=== PATIENT | female | born 1970 | race Caucasian/White ===

== ENCOUNTER 2022-12-02 15:51 | Emergency (ER) | payer BC, SELFPAY ==
[2022-12-02 17:00] VITALS: BP 145/86; PULSE 77; RESP 20; TEMP 36.8; O2SAT 99; BMI 20.6
--- NOTE | 2022-12-02 17:03 | ED_ITS ---
Discharge Plan Disposition Patient Disposition: Home, Self-Care Condition: Good Prescriptions Prescriptions: New ofloxacin 0.3 % drops 10 drp otic (ear) BID 7 Days Qty: 10 0RF Referrals Follow up/Referrals: Provider,Referral, MD [Primary Care Provider] - See instructions Clinical Impressions Clinical Impression: Otitis externa Instructions Patient Instructions: DI for Otitis Externa Discharge ED Provider: Tamiko Fong [facility] [place] General Stated complaint: earache Time Seen by Provider: 12/02/22 17:04 History of Present Illness Provider Complaint: Left ear pain X 5-6 days. Left ear feels swollen. Pain radiates into jaw. Hurts to touch ear. No fever. OTC ear drops have not helped. Onset (ago): day(s) Consistency: constant Relieving factors: none Exacerbating factors: none Associated symptoms: denies other symptoms Treatments prior to arrival: other (OTC ear drops) Related Data Previous Rx's Medication Instructions Recorded ofloxacin 0.3 % ear drops 10 drp otic (ear) BID 7 days #10 mL 12/02/22 Allergies Allergy/AdvReac Type Severity Reaction Status Date / Time No Known Allergies Allergy Verified 12/02/22 17:09 [facility] Disclaimer: The information contained in this section may have been updated after the patient was seen, as this information can be updated by other users. Social History Smoking Status: Unknown if ever smoked alcohol intake: never current occupational status: employed Travel in the last 8 weeks: None ROS Obtained: Yes All systems reviewed & no additional complaints except as documented ENT Ears, Nose, Mouth, and Throat: Reports otalgia Physical Exam General General appearance: alert and in no apparent distress Head Head exam: atraumatic, normocephalic and normal inspection ENT ENT exam: Present normal exam, normal oropharynx, mucous membranes moist and TM's normal bilaterally Expanded ENT Exam External ear exam: Present pain with movement and external tenderness TM/Canal exam: Left TM: canal discharge and canal tenderness Chest Chest inspection: Present normal inspection and symmetric chest wall rise; Absent tenderness Respiratory Respiratory exam: Present normal lung sounds bilaterally; Absent respiratory distress Cardiovascular Cardiovascular exam: Present regular rate and normal rhythm; Absent JVD Extremities Exam Extremities exam: Present normal inspection, full ROM and normal capillary refill; Absent calf tenderness Neurological Exam Neurological exam: Present alert and oriented X3 Psychiatric Psychiatric exam: Present normal affect and normal mood Skin Skin exam: Present warm, dry, intact and normal color Lymphatic Lymphatic Findings: no adenopathy Medical Decision Making Brooks Inquiry Pt receiving controlled substance: No
[2022-12-02 17:25] VITALS: BP 145/86; PULSE 77; RESP 20; TEMP 36.8; O2SAT 99
== END 2022-12-02 17:25 | disposition home or self-care (01) ==
PROVIDERS: Emergency Provider Physician Assistant
DX: H60.92 Unspecified otitis externa, left ear (principal)
CPT/HCPCS: 99212; 99213; G0463

== ENCOUNTER 2023-01-13 15:59 | Emergency (ER) | payer BC, SELFPAY ==
[2023-01-13 16:10] VITALS: BP 137/78; PULSE 77; RESP 20; TEMP 36.9; O2SAT 100; BMI 21.6
[2023-01-13 16:36] LABS: UTC Strep Screen (Rapid) Negative (Negative)
--- NOTE | 2023-01-13 16:51 | EXP.UTC ---
Discharge Plan Disposition Patient Disposition: Home, Self-Care Condition: Good Prescriptions Prescriptions: New benzonatate [benzonatate] 100 mg capsule 100 mg PO TIDP PRN (Reason: Cough) Qty: 30 0RF methylprednisolone 4 mg Tablets,Dose Pack 4 mg PO DIRECTED Qty: 21 0RF amoxicillin-pot clavulanate 500-125 mg tablet 1 tab PO TID Qty: 20 0RF Referrals Follow up/Referrals: Provider,Referral, MD [Primary Care Provider] - See instructions Activity Restrictions/Add. Instructions Additional Instructions/Restrictions: Drink plenty of fluids. Take tylenol or ibuprofen for pain or fever. Take the medications as directed. Follow up with your regular doctor. GO TO THE ER FOR ANY WORSENING SYMPTOMS Clinical Impressions Clinical Impression: Sinusitis, Pharyngitis Instructions Patient Instructions: DI for Pharyngitis/Tonsillopharyngitis -- Adult, DI for Sinusitis, Benzonatate, Methylprednisolone, Azithromycin Discharge ED Provider: Jurgen Henderson [facility] General Stated complaint: sore throat,, sinus pressure Mode of Arrival: Ambulatory Source of Information: Patient Limitations: No Limitations Time Seen by Provider: 01/13/23 16:51 Description of Symptoms (Recalled from Triage Doc. by RN): sinus pressure, and sore throat HEENT Symptoms (Recalled from RN notes): Yes Resp Symptoms (Recalled from RN notes): No Skin Symptoms (Recalled from RN notes): No MS Symptoms (Recalled from RN notes): No Functional Status (Recalled from RN notes): n/a History of Present Illness Provider Complaint: She states that for the past 5 days she has had sinus congestion, drainage, and a cough. She has had a sore throat also. Related Data Previous Rx's Medication Instructions Recorded amoxicillin 500 mg-potassium 1 tab PO TID #20 tabs 01/13/23 clavulanate 125 mg tablet benzonatate 100 mg capsule 100 mg PO TIDP PRN Cough #30 caps 01/13/23 methylprednisolone 4 mg tablets in 4 mg PO DIRECTED #21 tabs 01/13/23 a dose pack Allergies Allergy/AdvReac Type Severity Reaction Status Date / Time No Known Allergies Allergy Verified 01/13/23 16:35 Worker's Comp Is this a Worker's Comp case?: No [facility] Disclaimer: The information contained in this section may have been updated after the patient was seen, as this information can be updated by other users. Social History Smoking Status: Unknown if ever smoked alcohol intake: never current occupational status: employed Travel in the last 8 weeks: None ROS Obtained: Yes All systems reviewed & no additional complaints except as documented Constitutional Constitutional: Reports poor appetite Eyes Eyes: Reports system reviewed and no additional complaints, except as documented ENT Ears, Nose, Mouth, and Throat: Reports as per HPI Cardiovascular Cardiovascular: Reports system reviewed and no additional complaints, except as documented and Denies chest pain Respiratory Respiratory: Denies shortness of breath, Reports chest congestion, Reports cough, Denies stridor and Denies wheezing Gastrointestinal Gastrointestingal: Reports system reviewed and no additional complaints, except as documented; Denies abdominal pain, diarrhea or vomiting Musculoskeletal Musculoskeletal: Reports system reviewed and no additional complaints, except as documented and Denies arthralgias Integumentary/Breasts Skin/Breast: Reports system reviewed and no additional complaints, except as documented and Denies rash Neurologic Neurologic: Denies paresthesias Allergic/Immunologic Allergic/Immunologic: Denies wheezing Physical Exam General General appearance: alert and in no apparent distress Eye Eye exam: Present normal appearance, PERRL and EOMI ENT ENT exam: Present mucous membranes moist and normal external ear exam Expanded ENT Exam External ear exam: Present normal external inspection TM/Canal exam: Bilateral TM: er
[2023-01-13 17:34] VITALS: BP 137/78; PULSE 77; RESP 20; TEMP 36.9; O2SAT 100
== END 2023-01-13 17:23 | disposition home or self-care (01) ==
PROVIDERS: Emergency Provider Nurse Practitioner Family
DX: J01.90 Acute sinusitis, unspecified (principal); J02.9 Acute pharyngitis, unspecified; R05.1 Acute cough
CPT/HCPCS: 87880; 99212; 99214; G0463

== ENCOUNTER 2023-05-02 12:47 | Emergency (ER) | payer BC, SELFPAY ==
[2023-05-02 12:48] VITALS: BP 152/77; PULSE 66; RESP 20; TEMP 36.8; O2SAT 98; BMI 20.6
--- NOTE | 2023-05-02 13:01 | EXP.UTC ---
Discharge Plan Disposition Patient Disposition: Home, Self-Care Condition: Good Prescriptions Prescriptions: New methylprednisolone 4 mg Tablets,Dose Pack 4 mg PO DIRECTED Qty: 21 0RF sumatriptan succinate [Imitrex] 50 mg tablet See Rx Instructions .ROUTE .COMPLEX PRN (Reason: migraine headache) Qty: 9 3RF Rx Instructions: take 1 tab at onset of headache; if no relief may repeat 1 tab after at least 2 hrs; max = 4 tabs/24 hr PRN; amoxicillin-pot clavulanate 875-125 mg Tablet 1 tab PO Q12H Qty: 20 0RF No Action benzonatate [benzonatate] 100 mg capsule 100 mg PO TIDP PRN (Reason: Cough) Qty: 30 0RF methylprednisolone 4 mg Tablets,Dose Pack 4 mg PO DIRECTED Qty: 21 0RF amoxicillin-pot clavulanate 500-125 mg tablet 1 tab PO TID Qty: 20 0RF Referrals Follow up/Referrals: Provider,Referral, MD [Primary Care Provider] - See instructions Activity Restrictions/Add. Instructions Additional Instructions/Restrictions: Drink plenty of fluids. Take tylenol or ibuprofen for pain or fever. Take the medications as directed. Follow up with your regular doctor. GO TO THE ER FOR ANY WORSENING SYMPTOMS Clinical Impressions Clinical Impression: Sinusitis, History of migraine Instructions Patient Instructions: Sinusitis, DI for Sinusitis Discharge ED Provider: Jurgen Henderson [facility] General Stated complaint: sinus FROST, pressure Mode of Arrival: Ambulatory Source of Information: Patient Limitations: No Limitations Time Seen by Provider: 05/02/23 12:57 Description of Symptoms (Recalled from Triage Doc. by RN): Patient reports a bad headache, sinus and facial pressure for 11 days. HEENT Symptoms (Recalled from RN notes): Yes Resp Symptoms (Recalled from RN notes): No Skin Symptoms (Recalled from RN notes): No MS Symptoms (Recalled from RN notes): No Functional Status (Recalled from RN notes): wnl History of Present Illness Provider Complaint: She states that she has had sinus congestion and a headache for the past 3 days. She has a history of migraine headache. Related Data Previous Rx's Medication Instructions Recorded amoxicillin 500 mg-potassium 1 tab PO TID #20 tabs 01/13/23 clavulanate 125 mg tablet benzonatate 100 mg capsule 100 mg PO TIDP PRN Cough #30 caps 03/24/23 methylprednisolone 4 mg tablets in 4 mg PO DIRECTED #21 tabs 01/13/23 a dose pack amoxicillin 875 mg-potassium 1 tab PO Q12H #20 tabs 05/02/23 clavulanate 125 mg tablet methylprednisolone 4 mg tablets in 4 mg PO DIRECTED #21 tabs 05/02/23 a dose pack sumatriptan succinate 50 mg tablet See Rx Instructions PO .COMPLEX 05/02/23 (Imitrex) PRN migraine headache #9 tabs Allergies Allergy/AdvReac Type Severity Reaction Status Date / Time No Known Allergies Allergy Verified 01/13/23 16:35 Worker's Comp Is this a Worker's Comp case?: No [facility] Disclaimer: The information contained in this section may have been updated after the patient was seen, as this information can be updated by other users. Social History Smoking Status: Unknown if ever smoked alcohol intake: never current occupational status: employed Travel in the last 8 weeks: None ROS Obtained: Yes All systems reviewed & no additional complaints except as documented Constitutional Constitutional: Reports headache(s) and Reports poor appetite Eyes Eyes: Reports system reviewed and no additional complaints, except as documented and Denies loss of vision ENT Ears, Nose, Mouth, and Throat: Reports as per HPI, Denies dizziness and Reports headache(s) Cardiovascular Cardiovascular: Reports system reviewed and no additional complaints, except as documented and Denies chest pain Respiratory Respiratory: Denies shortness of breath, Denies chest congestion, Reports cough, Denies stridor and Denies wheezing Gastrointestinal Gastrointestingal: Reports system reviewe
[2023-05-02 13:29] VITALS: BP 152/77; PULSE 66; RESP 20; TEMP 36.8; O2SAT 98
== END 2023-05-02 13:30 | disposition home or self-care (01) ==
PROVIDERS: Emergency Provider Nurse Practitioner Family
DX: J01.90 Acute sinusitis, unspecified (principal); Z86.69 Personal history of other diseases of the nervous system and sense organs
CPT/HCPCS: 99212; 99214; G0463

== ENCOUNTER 2023-09-02 18:24 | Emergency (ER) | payer BC, SELFPAY ==
[2023-09-02 18:45] VITALS: BP 145/84; PULSE 73; RESP 20; TEMP 36.8; O2SAT 98; BMI 21.4
[2023-09-02 18:57] VITALS: BP 145/84; PULSE 73; RESP 20; TEMP 36.8; O2SAT 98
--- NOTE | 2023-09-02 19:13 | EXP.UTC ---
Discharge Plan Disposition Patient Disposition: Home, Self-Care Condition: Good Prescriptions Prescriptions: New methylprednisolone [Medrol (Neal)] 4 mg tablets,dose pack See Rx Instructions .Route .COMPLEX 6 Days Qty: 21 0RF Rx Instructions: taper pack; amoxicillin-pot clavulanate 875-125 mg Tablet 1 tab PO Q12H Qty: 20 0RF Referrals Follow up/Referrals: Provider,Referral, MD [Primary Care Provider] - See instructions Activity Restrictions/Add. Instructions Additional Instructions/Restrictions: *Monitor Temp, Over the counter Motrin or Tylenol as directed/as needed Tylenol every 4 hours and Motrin every 6 hours (as long as your family doctor has told you that you can take it) for fever or pain. and straight to ER if unable to lower temp less than 101.0 after medication given *Warm salt water gargles may help to soothe the throat *Throat Lozenges? *Warm fluids like tea with honey may help to soothe the throat? *Sleep elevated *Humidifier/Vaporizer Take medication as prescribed Follow up IMMEDIATELY for new or worsening symptoms or no Noticeable improvement over the next 48-72 hours. 911 for difficulty breathing or swallowing Clinical Impressions Clinical Impression: Sinusitis Qualifiers: Sinusitis location: unspecified location Chronicity: unspecified Qualified Code(s): J32.9 - Chronic sinusitis, unspecified Instructions Patient Instructions: DI for Sinusitis, Sinusitis Discharge ED Provider: Hannah Anand [facility] General Stated complaint: FROST,ears full,head pressure Mode of Arrival: Ambulatory Source of Information: Patient Limitations: No Limitations Time Seen by Provider: 09/02/23 19:14 Description of Symptoms (Recalled from Triage Doc. by RN): PATIENT C/O SINUS PRESSURE, EAR PAIN, FACE TENDERNESS, AND HEADACHE X 4 DAYS HEENT Symptoms (Recalled from RN notes): Yes Resp Symptoms (Recalled from RN notes): No Skin Symptoms (Recalled from RN notes): No MS Symptoms (Recalled from RN notes): No Functional Status (Recalled from RN notes): WNL History of Present Illness Provider Complaint: Patient states that for the last 4-5 days she has been having sinus pain and pressure, pressure behind her eyes, pain and pressure in her ears and feels like she is having drainage in the back of his throat and feels like her face is tender when she touches it States that today it was worse so she came in after work Related Data Previous Rx's Medication Instructions Recorded amoxicillin 875 mg-potassium 1 tab PO Q12H #20 tabs 09/02/23 clavulanate 125 mg tablet methylprednisolone 4 mg tablets in See Rx Instructions .Route 09/02/23 a dose pack (Medrol (Neal)) .COMPLEX 6 days #21 tabs Allergies Allergy/AdvReac Type Severity Reaction Status Date / Time No Known Allergies Allergy Verified 01/13/23 16:35 Worker's Comp Is this a Worker's Comp case?: No [facility] Disclaimer: The information contained in this section may have been updated after the patient was seen, as this information can be updated by other users. Medical History (Updated 09/02/23 @ 19:23 by Hannah Anand APRN) Anxiety Migraine Social History Smoking Status: Unknown if ever smoked alcohol intake: never current occupational status: employed Travel in the last 8 weeks: None ROS Obtained: Yes All systems reviewed & no additional complaints except as documented and Yes Systems reviewed as appropriate & no additional complaints except as documented Constitutional Constitutional: Reports system reviewed and no additional complaints, except as documented, Reports as per HPI and Reports headache(s) ENT Ears, Nose, Mouth, and Throat: Reports system reviewed and no additional complaints, except as documented, Reports otalgia, Reports headache(s), Reports sinus pain, Reports sinus pressure and Reports sore throat Cardiovascular Cardio
== END 2023-09-02 19:27 | disposition home or self-care (01) ==
PROVIDERS: Emergency Provider Nurse Practitioner
DX: J01.90 Acute sinusitis, unspecified (principal); R51.9 Headache, unspecified; H92.03 Otalgia, bilateral
CPT/HCPCS: 99212; 99214; G0463

== ENCOUNTER 2024-05-05 16:56 | Emergency (ER) | payer BC, SELFPAY ==
[2024-05-05 17:15] VITALS: BP 131/70; PULSE 74; RESP 18; TEMP 36.8; O2SAT 97; BMI 21.4
--- NOTE | 2024-05-05 17:17 | EXP.UTC ---
Discharge Plan Disposition Patient Disposition: Home, Self-Care Condition: Good Prescriptions Prescriptions: New benzonatate 100 mg capsule 100 mg PO TIDP PRN (Reason: Cough) Qty: 30 0RF methylprednisolone 4 mg Tablets,Dose Pack 4 mg PO DIRECTED 6 Days Qty: 21 0RF Rx Instructions: Take 1 pack as directed for 6 days amoxicillin-pot clavulanate 875-125 mg Tablet 1 tab PO Q12H Qty: 20 0RF Referrals Follow up/Referrals: Provider,Referral, MD [Primary Care Provider] - See instructions Activity Restrictions/Add. Instructions Additional Instructions/Restrictions: Drink plenty of fluids. Take tylenol or ibuprofen for pain or fever. Take the medications as directed. Follow up with your regular doctor. GO TO THE ER FOR ANY WORSENING SYMPTOMS Clinical Impressions Clinical Impression: Sinusitis Qualifiers: Sinusitis location: unspecified location Chronicity: unspecified Qualified Code(s): J32.9 - Chronic sinusitis, unspecified Instructions Patient Instructions: Sinusitis, DI for Sinusitis Discharge ED Provider: Jurgen Henderson [facility] General Stated complaint: Head congestion,FROST Time Seen by Provider: 05/05/24 17:17 History of Present Illness Provider Complaint: She states that for the past 3 days she has had worsening sinus congestion and ear pain. Related Data Previous Rx's Medication Instructions Recorded amoxicillin 875 mg-potassium 1 tab PO Q12H #20 tabs 05/05/24 clavulanate 125 mg tablet benzonatate 100 mg capsule 100 mg PO TIDP PRN Cough #30 caps 05/05/24 methylprednisolone 4 mg tablets in 4 mg PO DIRECTED 6 days #21 tabs 05/05/24 a dose pack Allergies Allergy/AdvReac Type Severity Reaction Status Date / Time No Known Allergies Allergy Verified 01/13/23 16:35 [facility] Disclaimer: The information contained in this section may have been updated after the patient was seen, as this information can be updated by other users. Medical History (Updated 05/05/24 @ 17:24 by Jurgen Henderson APRN) Anxiety Migraine Social History Smoking Status: Unknown if ever smoked alcohol intake: never current occupational status: employed Travel in the last 8 weeks: None ROS Obtained: Yes All systems reviewed & no additional complaints except as documented Constitutional Constitutional: Reports poor appetite Eyes Eyes: Reports system reviewed and no additional complaints, except as documented ENT Ears, Nose, Mouth, and Throat: Reports as per HPI Cardiovascular Cardiovascular: Reports system reviewed and no additional complaints, except as documented and Denies chest pain Respiratory Respiratory: Denies shortness of breath, Denies chest congestion, Reports cough, Denies stridor and Denies wheezing Gastrointestinal Gastrointestingal: Reports system reviewed and no additional complaints, except as documented; Denies abdominal pain, diarrhea or vomiting Musculoskeletal Musculoskeletal: Reports system reviewed and no additional complaints, except as documented and Denies arthralgias Integumentary/Breasts Skin/Breast: Reports system reviewed and no additional complaints, except as documented and Denies rash Neurologic Neurologic: Denies paresthesias Allergic/Immunologic Allergic/Immunologic: Denies wheezing Physical Exam General General appearance: alert and in no apparent distress Eye Eye exam: Present normal appearance, PERRL and EOMI ENT ENT exam: Present mucous membranes moist and normal external ear exam Expanded ENT Exam External ear exam: Present normal external inspection TM/Canal exam: Bilateral TM: erythema and bulging Nose exam: Absent sinus tenderness Nasal speculum exam: Bilateral: normal Mouth exam: Present normal external inspection; Absent drooling Teeth exam: Present normal inspection Throat exam: Present tonsillar erythema and tonsillomegaly Neck Neck exam: Present normal inspection, full ROM and trachea midline; Absent tenderness, lymphadenopathy or thyromegaly Chest Chest inspection: Present normal inspection and symmetric chest wall rise; Absent tenderness or rash Respiratory Respiratory exam: Present normal lung sounds bilaterally; Absent respiratory distress, wheezes, stridor or accessory muscle use Cardiovascular Cardiovascular exam: Present regular rate, normal rhythm and normal heart sounds Abdominal Exam Abdominal exam: Present soft; Absent distention, tenderness, guarding, rebound or rigidity Extremities Exam Extremities exam: Present normal inspection, full ROM and normal capillary refill; Absent tenderness or calf tenderness Back Exam Back exam: Present normal inspection and full ROM; Absent tenderness Neurological Exam Neurological exam: Present alert and oriented X3 Psychiatric Psychiatric exam: Present normal affect and normal mood Skin Skin exam: Present warm, dry, intact and normal color Lymphatic Lymphatic Findings: no adenopathy Medical Decision Making Medical Records Medical records reviewed: No I reviewed the patient's medical records. Brooks Inquiry Pt receiving controlled substance: No
[2024-05-05 17:27] VITALS: BP 131/70; PULSE 74; RESP 18; TEMP 36.8; O2SAT 98
== END 2024-05-05 17:30 | disposition home or self-care (01) ==
PROVIDERS: Emergency Provider Nurse Practitioner Family
DX: J01.90 Acute sinusitis, unspecified (principal); R51.9 Headache, unspecified; H92.03 Otalgia, bilateral
CPT/HCPCS: 99212; 99214; G0463

== ENCOUNTER 2024-06-30 16:44 | Emergency (ER) | payer BC, SELFPAY ==
--- NOTE | 2024-06-30 17:05 | ED_ITS ---
Discharge Plan Disposition Patient Disposition: Home, Self-Care Condition: Good Prescriptions Prescriptions: New triamcinolone acetonide 0.1 % cream 1 applic topical BID PRN (Reason: itching) Qty: 30 0RF diphenhydramine HCl 25 mg capsule 25 mg PO Q6HP PRN (Reason: Itching) Qty: 30 0RF methylprednisolone 4 mg Tablets,Dose Pack 4 mg PO DIRECTED 6 Days Qty: 21 0RF Rx Instructions: Take 1 pack as directed for 6 days No Action benzonatate 100 mg capsule 100 mg PO TIDP PRN (Reason: Cough) Qty: 30 0RF methylprednisolone 4 mg Tablets,Dose Pack 4 mg PO DIRECTED 6 Days Qty: 21 0RF Rx Instructions: Take 1 pack as directed for 6 days amoxicillin-pot clavulanate 875-125 mg Tablet 1 tab PO Q12H Qty: 20 0RF Referrals Follow up/Referrals: Provider,Referral, MD [Primary Care Provider] - See instructions Activity Restrictions/Add. Instructions Additional Instructions/Restrictions: Try to identify and avoid contact with the offending substance. Don't start the oral steroids (medrol dose pack) until tomorrow. The diphenhydramine (benedryl) will make you drowsy, so don't drive or operate heavy machinery after taking it. Don't put the topical steroids (triamcinolone) on your face or your groin. Follow up with your regular doctor. GO TO THE ER FOR ANY WORSENING SYMPTOMS OR CONCERNS Clinical Impressions Clinical Impression: Contact dermatitis Instructions Patient Instructions: DI for Contact Dermatitis, Diphenhydramine Topical, Triamcinolone Topical, Dexamethasone Injection Print Language Print Language: Fijian Discharge ED Provider: Jurgen Henderson [facility] General Stated complaint: rash Time Seen by Provider: 06/30/24 17:05 History of Present Illness Provider Complaint: She states that for the past 2 days she has had an itchy rash on her face, right arm and abdomen. She has been working around [place] in her back yard. Related Data Previous Rx's ?Medication ?Instructions ?Recorded amoxicillin 875 mg-potassium 1 tab PO Q12H #20 tabs 05/05/24 clavulanate 125 mg tablet benzonatate 100 mg capsule 100 mg PO TIDP PRN Cough #30 caps 05/05/24 methylprednisolone 4 mg tablets in 4 mg PO DIRECTED 6 days #21 tabs 05/05/24 a dose pack diphenhydramine HCl 25 mg capsule 25 mg PO Q6HP PRN Itching #30 caps 06/30/24 methylprednisolone 4 mg tablets in 4 mg PO DIRECTED 6 days #21 tabs 06/30/24 a dose pack triamcinolone acetonide 0.1 % 1 applic topical BID PRN itching 06/30/24 topical cream #30 grams Allergies Allergy/AdvReac Type Severity Reaction Status Date / Time No Known Allergies Allergy Verified 01/13/23 16:35 [facility] Disclaimer: The information contained in this section may have been updated after the patient was seen, as this information can be updated by other users. Medical History (Updated 06/30/24 @ 17:18 by Jurgen Henderson APRN) Anxiety Migraine Social History Smoking Status: Unknown if ever smoked alcohol intake: never current occupational status: employed Travel in the last 8 weeks: None ROS Obtained: Yes All systems reviewed & no additional complaints except as documented Constitutional Constitutional: Denies chills and Denies fever(s) Eyes Eyes: Denies eye discharge ENT Ears, Nose, Mouth, and Throat: Denies dizziness, Denies otalgia and Denies sore throat Cardiovascular Cardiovascular: Denies chest pain Respiratory Respiratory: Denies shortness of breath, Denies chest congestion, Denies cough, Denies stridor and Denies wheezing Gastrointestinal Gastrointestingal: Denies nausea or vomiting Musculoskeletal Musculoskeletal: Reports system reviewed and no additional complaints, except as documented and Denies arthralgias Integumentary/Breasts Skin/Breast: Reports as per HPI and Reports rash Neurologic Neurologic: Denies dizziness and Denies paresthesias Allergic/Immunologic Allergic/Immunologic: Denies wheezing Physical Exam General General appearance: alert and in no apparent distress Head Head exam: atraumatic, normocephalic and normal inspection Eye Eye exam: Present normal appearance, PERRL and EOMI ENT ENT exam: Present normal exam, normal oropharynx, mucous membranes moist, TM's normal bilaterally and normal external ear exam Neck Neck exam: Present normal inspection, full ROM and trachea midline; Absent men ingismus or lymphadenopathy Chest Chest inspection: Present normal inspection and symmetric chest wall rise; Absent tenderness Respiratory Respiratory exam: Present normal lung sounds bilaterally; Absent respiratory distress Cardiovascular Cardiovascular exam: Present regular rate and normal rhythm; Absent JVD Abdominal Exam Abdominal exam: Present soft and normal bowel sounds; Absent distention, tend erness or guarding Extremities Exam Extremities exam: Present normal inspection, full ROM and normal capillary refill; Absent calf tenderness Back Exam Back exam: Present normal inspection; Absent tenderness Neurological Exam Neurological exam: Present alert and oriented X3 Psychiatric Psychiatric exam: Present normal affect and normal mood Skin Skin exam: Present rash Lymphatic Lymphatic Findings: no adenopathy Medical Decision Making Medical Records Medical records reviewed: No I reviewed the patient's medical records. [place] Inquiry Pt receiving controlled substance: No
[2024-06-30 17:06] VITALS: BP 143/69; PULSE 80; RESP 16; TEMP 37.1; O2SAT 99; BMI 20.9
[2024-06-30] MEDS: DEXAMETHASONE 4MG/ML 1ML VIAL 8 MG IM (17:19)
[2024-06-30 17:35] VITALS: BP 143/69; PULSE 80; RESP 16; TEMP 37.1; O2SAT 99
== END 2024-06-30 17:36 | disposition home or self-care (01) ==
PROVIDERS: Emergency Provider Nurse Practitioner Family
DX: L23.7 Allergic contact dermatitis due to plants, except food (principal); W60.XXXA Contact with nonvenomous plant thorns and spines and sharp leaves, initial encounter
CPT/HCPCS: 96372; 99212; 99214; G0463; J1100

== ENCOUNTER 2024-09-10 15:16 | Emergency (ER) | payer BC, SELFPAY ==
--- OUTSIDE RECORDS SUMMARY | 2024-09-10 15:23 | XMS_ITS | Data Portability ---
Author Organization [place] - [facility] - [facility], [facility] IP Address [address] [place] [address] Assessment No assessment recorded. Plan of Treatment Reminders Order Date Submit Date Provider Last Modified By Organization Details Last Modified Time Details Appointments Women Visit 45 2024 03:00P YAJAIRA FLORES Not available Not available Not available Lab cytology report, thin prep, smear or scraping, cervical or vaginal 2023 024 HEBRON [facility], [address] [place] [address], [address], 06/05/2024 09:14:09 Referral None recorded. Procedures None recorded. Surgeries None recorded. Imaging None recorded. Medication Orders None recorded. Patient TargetsNo targets recorded. Patient InstructionsNo instructions recorded. Reason for Referral None Reported. Results Created Date Observation Date Name Description Value Unit Range Abnormal Flag Note LastModifiedBy Organization Detail LastModifiedTime 12/17/2019 rapid flu (A+B) Procedural Control Valid: Yes Not Available [facility] [address], [place], [address], 12/17/2019 13:19:53 12/17/2019 rapid flu (A+B) Influenza A Result: negati ve Not Available [facility] [employer] [facility] [address], [place], [address], 12/17/2019 13:19:53 12/17/2019 rapid flu (A+B) Influenza B Result: negati ve Not Available [facility] [employer] [facility] [employer] [address], [place], [address], 12/17/2019 13:19:53 12/14/2019 rapid flu (A+B) Procedural Control Valid: Yes Not Available [facility] [address], [place], [address], 12/14/2019 11:16:10 12/14/2019 rapid flu (A+B) Influenza A Result: negati ve Not Available [facility] [address], [place], [address], 12/14/2019 11:16:10 12/14/2019 rapid flu (A+B) Influenza B Result: negati ve Not Available [facility] [address], [place], [address], 12/14/2019 11:16:10 07/28/20 22 07/28/2022 rapid SARS CoV 2 Ag, QL IA, respi rator y speci men Procedure Control Valid Yes Not Available Not Available 03/2022 14:07:35 07/28/20 22 07/28/2022 rapid SARS CoV 2 Ag, QL IA, respi rator y speci men SARS negati ve Not Available Not Available 14:07:35 07/28/2007/28/2022 rapid SARS CoV 2 Ag, QL IA, respi rator y speci men Confirmation Specimen sent to lab Yes Not Available Not Available 07/28/2022 14:07:35 07/28/20 22 07/28/2022 rapid flu (A+B) Procedural Control Valid: Yes Not Available [facility] [address], [place], [address], 07/28/2022 14:07:33 07/28/20 22 07/28/2022 rapid flu (A+B) Influenza A Result: negati ve Not Available [facility] [address], [place], [address], 07/28/2022 14:07:33 07/28/20 22 07/28/2022 rapid flu (A+B) Influenza B Result: negati ve Not Available [facility] [address], [place], [address], 07/28/2022 14:07:33 07/28/20 22 07/28/2022 rapid strep group A, throa t Procedural Control Valid: Yes Not Available [facility] [address], [place], [address], 07/28/2022 14:07:32 07/28/20 22 07/28/2022 rapid strep group A, throa t Strep A Result: negati ve Not Available [facility] [address], [place], [address], 07/28/2022 14:07:32 07/28/20 22 07/28/2022 rapid strep group A, throa t Confirmation Specimen Yes Not Available [facility] [address], [place], [address], 07/28/2022 14:07:32 07/28/20 22 07/31/2022 BETA STREP GP A CULTU RE beta strep gp A culture negati ve Refer ence Range : Negat kurtis Not Available [facility] ([facility]) [address] [place], [address], 07/31/2022 09:08:19 07/28/2007/28/2022 PLEAS E NOTE please note commen t The date and/o r time of colle ction was not indic ated on the requi sitio n as requi red by state and nia al law. The date of recei pt of the speci men was used as the colle ction date if not suppl ied. Not Available [facility] ([facility]) [address] [facility], [place], [address], 07/29/2022 14:10:50 07/28/20 22 07/29/2022 SARS- COV-2 , JOSSELYN sars-cov-2, JOSSELYN not detect ed not detect ed This nucle ic acid ampli ficat ion test was devel oped and its perfo rmanc e teresa cteri stics deter mined by [facility] at[facility] es. Nucle ic acid ampli ficat ion tests inclu de RT-PC R and TMA. This test has not been FDA clear ed or appro marylou. This test has been autho rized by FDA under an Emerg ency Use Autho rizat ion (EUA) . This test is only autho rized for the durat ion of time the decla ratio n that circu mstan tom exist justi fying the autho rizat ion of the emerg ency use of in vitro diagn ostic tests for detec tion of SARS- CoV-2 virus and/o r diagn osis of COVID -19 infec tion under secti on 564(b )(1) of the Act, 21 U.S.C . 360bb b-3(b ) (1), unles s the autho rizat ion is termi nated or revok ed soone r. When diagn ostic testi ng is negat kurtis, the possi bilit y of a false negat kurtis resul t shoul d be consi dered in the alyson xt of a patie nt's recen t expos ures and the prese nce of clini janae signs and sympt oms consi stent with COVID -19. An indiv idual witho ut sympt oms of COVID -19 and who is not fauzia ing SARS- CoV-2 virus would expec t to have a negat kurtis (not detec yan) resul t in this assay . Not Available [facility] ([facility]) [address] [facility], [place], [address], 07/29/2022 14:10:49 07/28/20 22 07/29/2022 SARS- COV-2 , JOSSELYN sars-cov-2, JOSSELYN 2 day tat perfor med Not Available [facility] ([facility]) [address] [facility], [place], [address], 07/29/2022 14:10:49 05/30/20 24 06/01/2024 IGP, APTIM A HPV, RFX 16/18 ,45 HPV aptima NEGATI VE negati ve This nucle ic acid ampli ficat ion test detec ts fourt een high- risk HPV types (16,1 8,31, 33,35 ,39,4 5,51, 52,56 ,58,5 9,66, 68) witho ut diffe renti ation . Not Available [facility] ([facility]) [address] [place], [address], 06/05/2024 09:14:09 05/30/20 24 06/05/2024 IGP, APTIM A HPV, RFX 16/18 ,45 interpretati on NILM,A SMR NEGAT KURTIS FOR INTRA EPITH ELIAL LESIO N OR MALIG RENATO . CELLU FLORES BANKS ES ASSOC IATED WITH ATROP HY ARE PRESE NT. Not Available [facility] ([facility]) [address] [place], [address], 06/05/2024 09:14:09 05/30/20 24 06/05/2024 IGP, APTIM A HPV, RFX 16/18 ,45 category: NIL Negat kurtis for Intra epith elial Lesio n Not Available [facility] ([facility]) [address] [facility], [place], [address], 06/05/2024 09:14:09 05/30/20 24 06/05/2024 IGP, APTIM A HPV, RFX 16/18 ,45 adequacy: PAER Satis facto ry for evalu ation . Endoc ervic al compo nent may not be disti nguis hed in cases of atrop hy. Not Available [facility] ([facility]) [address] [place], [address], 06/05/2024 09:14:09 05/30/20 24 06/05/2024 IGP, APTIM A HPV, RFX 16/18 ,45 clinician provided ICD10: BREANNEN T Z01.4 19 Not Available [facility] ([facility]) [address] [facility], [place], [address], 06/05/2024 09:14:09 05/30/20 24 06/05/2024 IGP, APTIM A HPV, RFX 16/18 ,45 performed by: BEENA Camacho , Cytoperri perera (ASCP ) Not Available [facility] ([facility]) [address] [facility], [place], [address], 06/05/2024 09:14:09 05/30/20 24 06/05/2024 IGP, APTIM A HPV, RFX 16/18 ,45 note: BEENA Perera The Pap smear is a scree brianna test desyannick belia to aid in the detec tion of dago ligna nt and malig nant condi tions of the uteri ne cervi x. It is not a diagn ostic proce dure and shoul d not be used as the sole means of detec ting cervi janae cance r. Both false -posi tive and false -nega tive repor ts do occur . Not Available [facility] ([facility]) [address] [facility], [place], [address], 06/05/2024 09:14:09 05/30/20 24 06/05/2024 IGP, APTIM A HPV, RFX 16/18 ,45 test methodology: BEENA Perera This liqui d based ThinP rep(R ) pap test was scree belia with the use of an image guide benito chavez. Not Available [facility] ([facility]) [address] [facility], [place], [address], 06/05/2024 09:14:09 05/30/20 24 06/05/2024 IGP, APTIM A HPV, RFX 16/18 ,45 HPV genotype reflex BEENA Perera Crite luis miguel not met, HPV Genot ype not perfo rmed. Not Available [facility] ([facility]) [address] [facility], [place], [address], 06/05/2024 09:14:09 Result Notes None recorded. 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 Procedures Surgical History Date Name Laterality Status Provider Name and Address Organization Details Recorded Time 05/30/2024 C-SSRA completed Mayela Javier [place] - [facility] 05/30/2024 13:13:00 Imaging Results None recorded. Procedure Notes None recorded. Medical Equipment None Reported. Allergies Allergen ID Allergen Name Allergen Category Reaction Reaction Severity Criticality Documentation Date Start Date Code Code System Note Provider Name and Address Organization Details Recorded Time 227 Non-stero idal anti-infl ammatory agent (product) medicatio n Not available Not available Not available 11/25/2023 00167 005 SNOMED ibupr ophen Not Available [facility] 16:10:22 Medications Name Sig Start Date Stop Date Status Note LastModified by Organization Details LastModified Time promethazin e-DM 6.25 mg-15 mg/5 mL oral syrup Take 5 mL every 6 hours by oral route. 12/14 completed Not Available Not Available Not Available azithromyci n 250 mg tablet 05/30 completed Not Available Not Available Not Available sumatriptan 100 mg tablet TAKE 1 TABLET BY MOUTH DAILY AT ONSET OF MIGRAINE FOR 9 DAYS NEEDED. MAY REPEAT 1 TIME AFTER 2 HOURS NEEDED active Not Available Not Available No t Available Claritin 10 mg tablet Take 1 tablet every day by oral route. 11/14 completed Not Available Not Available Not Available Aplisol 5 tub. unit/0.1 mL intradermal injection solution Inject 0.1 mL by intraderm al route. 05/30 completed Not Available Not Available Not Available prednisone 20 mg tablet Take 1 tablet twice a day by oral route for 5 days. 11/24 completed Not Available Not Available Not Available Diflucan 150 mg tablet Take 1 tablet every 72 hours by oral route as directed. 07/28 completed Not Available Not Available Not Available sumatriptan 50 mg tablet active Not Available Not Available Not Available amlodipine 5 mg tablet Take 1 tablet every day by oral route. 12/14 completed Not Available Not Available Not Available ofloxacin 0.3 % ear drops PLACE 10 DROPS INTO AFFECTED EAR TWICE DAILY FOR 7 DAYS 05/30 completed Not Available Not Available Not Available amoxicillin 875 mg tablet TAKE 1 TABLET BY MOUTH TWICE DAILY 05/30 completed Not Available Not Available Not Available citalopram 20 mg tablet Take 1 tablet every day by oral route. 12/14 completed Not Available Not Available Not Available benzonatate 100 mg capsule Take 2 capsules 3 times a day by oral route. 05/30 completed Not Available Not Available Not Available oseltamivir 75 mg capsule Take 1 capsule twice a day by oral route as directed for 5 days. 12/19 completed Not Available Not Available Not Available hydroxyzine HCl 25 mg tablet TAKE 1 TABLET BY MOUTH THREE TIMES DAILY NEEDED 05/30 completed Not Available Not Available Not Available dexamethaso ne sodium phosphate 4 mg/mL injection solution Inject 1 mL twice a day by intramusc ular route for 1 day. 12/19 completed Not Available Not Available Not Available lorazepam 1 mg tablet TAKE 1/2 TO 1 TABLET BY MOUTH THREE TIMES DAILY NEEDED 05/30 completed Not Available Not Available Not Available ibuprofen 600 mg tablet TAKE 1 TABLET BY MOUTH THREE TIMES DAILY FOR 7 DAYS FOR PAIN 05/30 completed Not Available Not Available Not Available scopolamine 1 mg over 3 days transdermal patch 05/30 completed Not Available Not Available Not Available methylpredn isolone 4 mg tablets in a dose pack FOLLOW PACKAGE DIRECTION S 05/30 completed Not Available Not Available Not Available cefdinir 300 mg capsule TAKE 1 CAPSULE BY MOUTH TWICE DAILY FOR 10 DAYS 05/30 completed Not Available Not Available Not Available Sudafed 12 Hour 120 mg tablet,exte nded release Take 1 tablet every 12 hours by oral route. 12/14 completed Not Available Not Available Not Available amoxicillin 875 mg-potassiu m clavulanate 125 mg tablet TAKE 1 TABLET TWICE DAILY BY MOUTH FOR 10 DAYS 05/30 completed Not Available Not Available Not Available amoxicillin 500 mg-potassiu m clavulanate 125 mg tablet TAKE 1 TABLET BY MOUTH THREE TIMES DAILY TILL ALL TAKEN 05/30 completed Not Available Not Available Not Available Afrin (oxymetazol ine) 0.05 % nasal spray [facility] 2 sprays twice a day by intranasa l route. 12/14 completed Not Available Not Available Not Available Mucinex 600 mg tablet, extended release Take 1 tablet every 12 hours by oral route. 12/14 completed Not Available Not Available Not Available escitalopra m 10 mg tablet TAKE 1 TABLET BY MOUTH EVERY DAY 05/30 completed Not Available Not Available Not Available escitalopra m 5 mg tablet TAKE 1 TABLET BY MOUTH EVERY DAY 05/30 completed Not Available Not Available Not Available omeprazole PRN 2019 active Not Available Not Available Not Avai lable sodium,pota ssium,mag sulfates 17.5 gram-3.13 gram-1.6 gram oral soln MIX AND DRINK DIRECTED 05/30 completed Not Available Not Available Not Available Flonase Allergy Relief 50 mcg/actuati on nasal spray,suspe nsion [facility] 2 sprays every day by intranasa l route. 12/14 completed Not Available Not Available Not Available Vitals Date Recorded Body weight Heart rate Oxygen saturation Oxygen saturation in Arterial blood by Pulse oximetry Body temperature Systolic blood pressure Diastolic blood pressure Provider Name and Address Organization Details Last Updated DateTime 4 03204.6 g 78 /min 98 % 98 % 98.7 [degF] 124 mm[Hg] 75 mm[Hg] Mayela Herrera [place] - [facility] 4 13:14:16 Date Recorded Heart rate Oxygen saturation Oxygen saturation in Arterial blood by Pulse oximetry Body temperature Body weight Systolic blood pressure Diastolic blood pressure Provider Name and Address Organization Details Last Updated DateTime 0 83 /min 98 % 98 % 98.8 [degF] 98621.4 5 g 139 mm[Hg] 70 mm[Hg] Not Available [facility] 4 16:07:51 Social History Question Answer Notes LastModified by Organizat ion Details LastModified Time Tobacco Smoking Status Never Smoker Not Available [facility] 11/25/2023 16:05:10 Do You Have An Advance Directive? No [id number].[id number] Information not available 11/25/2023 What Is Your Level Of Alcohol Consumption? Occasional Rare [email or web address] Information not available 05/30/2024 Are You Blind Or Do You Have Difficulty Seeing? No MIGRATION.23013 [id number] Information not available 11/25/2023 What Is Your Level Of Caffeine Consumption? Moderate Diet Sodas A Couple Per Day Information not available 05/30/2024 How Much Tobacco Do You Chew? 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 No MIGRATION.17006 [id number] Information not available 11/25/2023 What Type Of Diet Are You Following? REGULAR 05/30/24 Diet Review: healthy. Calcium Intake Via Green Veggies, Much Milk. Fruits/Veg About 3-4 Servings Per Day. Information not available 05/30/2024 Which Illicit Or Recreational Drugs Have You Used? None MIGRATION.[id number] Information not available 11/25/2023 Have You Had Other Close Contact With An Ebola Virus Disease Patient In Health Care Facilities Or Community Settings? No MIGRATION.05515 11409 Information not available 11/25/2023 Have You Had Contact With Blood, Bodily Fluids, Or Human Remains Of A Patient Known To Have Or Suspected To Have Ebola Virus Disease? No MIGRATION.16090 77092 Information not available 11/25/2023 Do You Reside In Or Have You Traveled To An Area Where Ebola Virus Transmission Is Active? No MIGRATION.48895 21435 Information not available 11/25/2023 What Is The Highest Grade Or Level Of School You Have Completed Or The Highest Degree You Have Received? SB80130-2 X2 [email or web address] Information not available 05/30/2024 How Many Days Of Moderate To Strenuous Exercise, Like A Brisk Walk, Did You Do In The Last 7 Days? 4 [email or web address] Information not available 05/30/2024 Have There Been Any Changes To Your Family Or Social Situation? No MIGRATION.82965 73005 Information not available 11/25/2023 Are There Any Guns Present In Your Home? No MIGRATION.56671 74254 Information not available 11/25/2023 Have You Actually Had Any Thoughts Of Killing Yourself? No MIGRATION.69950 82955 Information not available 11/25/2023 Any Thoughts Of Harming Your Self Or Others No MIGRATION.09856 77530 Information not available 11/25/2023 Oriented Yes MIGRATION.67258 96027 Information not available 11/25/2023 Gait Steady MIGRATION.24026 [id number] Information not available 11/25/2023 Any Problems With Depression No MIGRATION.57097 29576 Information not available 11/25/2023 History Of Falling; Immediate Or Within 3 Months No MIGRATION.17392 46970 Information not available 11/25/2023 Do You Live Alone? No [email or web address] Information not available 05/30/2024 How Intense Was Your Typical Exercise? Moderate (like Brisk Walking) [email or web address] Information not available 05/30/2024 What Was The Date Of Your Most Recent Tobacco Screening? 05/30/2024 [email or web address] Information not available 05/30/2024 What Is Your Relationship Status? Information not available 05/30/2024 Do You Use Your Seat Belt Or Car Seat Routinely? Yes [email or web address] Information not available 05/30/2024 Are You Sexually Active? Yes [email or web address] Information not available 05/30/2024 Do You Have Smoke And Carbon Monoxide Detectors In Your Home? Yes [email or web address] Information not available 05/30/2024 Are You Passively Exposed To Smoke? No [email or web address] Information not available 05/30/2024 How Much Tobacco Do You Smoke? No MIGRATION.56855 12259 Information not available 11/25/2023 Do You Use Any Illicit Or Recreational Drugs? No [email or web address] Information not available 05/30/2024 Do You Use Sunscreen Routinely? Yes MIGRATION.93980 81734 Information not available 11/25/2023 Do You Or Have You Ever Used Any Other Forms Of Tobacco Or Nicotine? No [email or web address] Information not available 05/30/2024 How Many Days In The Past Year Have You Consumed 4 Or More Drinks? 0 [email or web address] Information not available 05/30/2024 Sex: Unknown Functional Status Question Answer Note LastModified by Organizat ion Details LastModified Time Do you have difficulty walking or climbing stairs? No MIGRATION.[id number] 0 Information not available 11/25/2023 Do you have difficulty doing errands alone? No MIGRATION.[id number] 0 Information not available 11/25/2023 Do you have difficulty dressing or bathing? No MIGRATION.[id number] 0 Information not available 11/25/2023 What is your exercise level? Heavy MIGRATION.[id number] 0 Information not available 11/25/2023 Mental Status Question Answer Note LastModified by Organizat ion Details LastModified Time Do you have difficulty concentrating, remembering or making decisions? No MIGRATION.[id number] 0 Information not available 11/25/2023 Family History Relationship Description Onset Age of this Age Resolved Age Notes LastModified by Organization Details LastModified Time Mother Aneurysm 59 [email or web address] Not availabl e 05/30/2024 13:40:43 Father Malignant tumor of kidney pt. added direct ly (05/30) [email or web address] Not available 05/30/2024 10:43:00 Father Malignant tumor of prostate 81 [email or web address] Not available 2023 13:32:51 Medical History Condition Response Coronary Artery Disease N OSTEOARTHITITIS N Gout N Kidney Stones N Hypothyroidism N Depression N COPD N HYPERTHYROIDISM N AFIB N BREAST CA N HYPERLIPIDEMIA N CAD N PROSTATE CANCER N Anxiety Disorder N HYPORTHYROIDISM N Arthritis N Tuberculosis N Cancer N Stroke N Diverticulitis N GERD/Reflux N High Cholesterol N OSTEOPOROSIS N Liver Disease N Heart Disease N Pulmonary Embolism N Fibromyalgia N Hypertension N Kidney Disease N Gynecological HistoryNo gynecological history recorded. Obstetrics History GPAL:G 0 P 0 0 0 0 Past Encounters Encounter ID Performer Location Encounter Start Date Encounter Closed Date Diagnosis/Indication Diagnosis SNOMED-CT Code Diagnosis ICD10 Code [id number] [facility] [address] [facility] [place] [address] 02/01/2017 00:00:00 02/01/2017 00:00:00 [id number] [facility] [address] [place] [address] 11/14/2017 00:00:00 11/25/2017 00:00:00 [id number] [facility] [address] [place] [address] 11/24/2017 00:00:00 11/25/2017 00:00:00 [id number] [facility] [address] [facility] [place] [address] 12/14/2019 00:00:00 12/14/2019 00:00:00 [id number] [facility] [address] [place], [place] [address] 12/17/2019 00:00:00 12/17/2019 00:00:00 [id number] [facility] [address] [place], [place] [address] 12/19/2020 00:00:00 12/19/2020 00:00:00 [id number] [facility] [address] [place], [place] [address] 07/28/2022 00:00:00 07/28/2022 00:00:00 [id number] [facility] [address] [place], [place] [address] 05/25/2022 00:00:00 05/25/2022 00:00:00 [id number] 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, 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 [facility] [address] [facility] [place], [place] [address] 05/30/2024 13:04:28 05/30/2024 14:13:48 Gynecologic examination [id number] Z01.419 Health Concerns Section Related Observation LastModified by Organization Detai ls LastModified Time None Recorded Concern Status LastModified by Organization Details LastModified Time None Recorded Advance Directives Directive N: Payers Encounter Date Sequence Insurance Name Policy Number Policy Warren Covered Member ID Warren Member ID Guarantor Name 05/30/2024 1 [place] [id number] Brenda Garcia [id number] Brenda Garcia Notes Date Note Type Note Provider Name and Address Organization Details Recorded Time 12/17/2019 text/html Upper Respirator y SymptomsReported bypatient.Location:he ad Quality:congested Severity:moderate Duration:10-13 days Onset/Timing:sudden Context:sick contact;allergies Modifying Factors:OTC medication Associated Symptoms:no sputum production; no shortness of breath; no wheezing; no change in number of pillows needed to sleep at night; sinus pain, ear ache, dizziness Not Available [place] - [facility] - [facility] 12/17/2019 14:00:25 07/28/2022 text/html Upper Respirator y SymptomsReported bypatient.Location:he ad; chest; throat Quality:sharp throat pain;hacking cough;hurts to swallow Severity:mild Duration:6 days Context:no sick contacts; non-smoker Associated Symptoms:no shortness of breath; no wheezing; no sweats; no significant weight gain; no significant weight loss;yellow sputum;morning cough;sore throat; fatigue and headache Not Available [facility] 07/28/2022 14:42:23 05/30/2024 text/html Brenda is a 54 year old female who presents for an annual exam. Periods are {{absent* regular irr egular abnormal}} since about 2019. No recent vaginal bleeding, spotting, or discharge. Pt {{is* is NOT}} sexually active with , since 2015. The following portions of the patient's history were reviewed and updated as appropriate: allergies, current medications, family history, medical history, social history, surgical history and problem list. Her PCP is Zulma Shankar APRN. 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 Last PAP was 4-5 yrs ago with result of {{NILM* ASCUS LSIL HS [place] cannot exclude high grade}} and HPV testing is uncertain.Family history of colon, uterine, or ovarian cancer: {{no* yes:}}. Last screening 08/2023, 10 yr repeat.Regular self breast exam: {{yes no but knowns how* no and needs teaching}}History of abnormal mammogram: {{yes no*}}, March 2024 last one.Family history of breast cancer: {{yes no*}}History of abnormal lipids: {{no yes yes currently on medication yes borderline#}}Menarche age {{9 10 11 12* 13 14 1 5 or greater}} 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, 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 [address] [place], [address], [facility] 05/30/2024 14:31:49 OBGyn Episode No OBEpisode recorded.
[2024-09-10 16:20] VITALS: BP 141/79; PULSE 74; RESP 17; TEMP 37.2; O2SAT 99; BMI 23.0
--- NOTE | 2024-09-10 16:47 | EXP.UTC ---
Discharge Plan Disposition Patient Disposition: Home, Self-Care Condition: Good Prescriptions Prescriptions: New methylprednisolone [Medrol (Neal)] 4 mg tablets,dose pack See Rx Instructions .Route .COMPLEX 6 Days Qty: 21 0RF Rx Instructions: taper pack; amoxicillin-pot clavulanate 875-125 mg Tablet 1 tab PO Q12H Qty: 20 0RF Referrals Follow up/Referrals: Provider,Referral, MD [Primary Care Provider] - See instructions Activity Restrictions/Add. Instructions Additional Instructions/Restrictions: You was given a shot or Rocephin and SoluMedrol in the [facility] today Stop the DOXYCYCLINE and do not take any other antibiotics today you may start the Augmentin and Medrol Dose pack tomorrow Make sure to drink plenty of fluids Follow up with your Family Doctor if no improvement or any worsening of symptoms Straight to ER if any life threatening symptoms Clinical Impressions Clinical Impression: Sinusitis Qualifiers: Sinusitis location: unspecified location Chronicity: unspecified Qualified Code(s): J32.9 - Chronic sinusitis, unspecified Instructions Patient Instructions: Sinusitis, DI for Sinusitis Print Language Print Language: Luxembourgish Discharge ED Provider: Hannah Anand [facility] HPI General Stated complaint: poss sinus inf Mode of Arrival: Ambulatory Source of Information: Patient Limitations: No Limitations Time Seen by Provider: 09/10/24 16:49 Description of Symptoms (Recalled from Triage Doc. by RN): PATIENT C/O SINUS PAIN AND PRESSURE X 11 DAYS HEENT Symptoms (Recalled from RN notes): Yes Resp Symptoms (Recalled from RN notes): No Skin Symptoms (Recalled from RN notes): No MS Symptoms (Recalled from RN notes): No Functional Status (Recalled from RN notes): WNL History of Present Illness Provider Complaint: Patient states that she has been having sinus pain and pressure and pressure behind her eyes for 11 days states that she seen PCP and was prescribed Doxy but she has taken it several times and doesnt help her much so she came in wanting to get antibiotic changed and something to help clear up the sinus infection Related Data Previous Rx's ?Medication ?Instructions ?Recorded amoxicillin 875 mg-potassium 1 tab PO Q12H #20 tabs 09/10/24 clavulanate 125 mg tablet methylprednisolone 4 mg tablets in See Rx Instructions .Route 09/10/24 a dose pack (Medrol (Neal)) .COMPLEX 6 days #21 tabs Allergies Allergy/AdvReac Type Severity Reaction Status Date / Time No Known Allergies Allergy Verified 01/13/23 16:35 Worker's Comp Is this a Worker's Comp case?: No [facility] Disclaimer: The information contained in this section may have been updated after the patient was seen, as this information can be updated by other users. Medical History (Updated 09/10/24 @ 16:55 by Hannah Anand APRN) Anxiety Migraine Social History Smoking Status: Unknown if ever smoked alcohol intake: never current occupational status: employed Travel in the last 8 weeks: None ROS Obtained: Yes All systems reviewed & no additional complaints except as documented and Yes Systems reviewed as appropriate & no additional complaints except as documented Constitutional Constitutional: Reports system reviewed and no additional complaints, except as documented, Reports as per HPI and Reports headache(s) ENT Ears, Nose, Mouth, and Throat: Reports system reviewed and no additional complaints, except as documented, Reports as per HPI, Reports headache(s), Reports sinus pain and Reports sinus pressure Cardiovascular Cardiovascular: Reports system reviewed and no additional complaints, except as documented and Reports as per HPI Respiratory Respiratory: Reports system reviewed and no additional complaints, except as documented and Reports as per HPI Gastrointestinal Gastrointestingal: Reports system reviewed and no additional complaints, except as documented and as per HPI Genitourinary Female Genitourinary: Reports system reviewed and no additional complaints, except as documented and Reports as per HPI Neurologic Neurologic: Reports headache(s) Physical Exam General General appearance: alert and in no apparent distress ENT ENT exam: Present mucous membranes moist Expanded ENT Exam Nose exam: Present sinus tenderness Throat exam: Present other (PND noted) Chest Chest inspection: Present normal inspection and symmetric chest wall rise Respiratory Respiratory exam: Present normal lung sounds bilaterally; Absent respiratory distress or wheezes Cardiovascular Cardiovascular exam: Present regular rate, normal rhythm and normal heart sounds Abdominal Exam Abdominal exam: Present soft and normal bowel sounds; Absent distention or tenderness Neurological Exam Neurological exam: Present alert, oriented X3 and normal gait Medical Decision Making Medical Records Screening: Per USPSTF and CDC recommendations, given the prevalence of disease in our region, it is our hospital?s policy to screen for HIV and viral Hepatitis for all patients aged 18 and over and those with ongoing risk factors. Brooks Inquiry Pt receiving controlled substance: No Brooks was queried for this patient: No Vital Signs: 09/10/24 16:20 Temperature 99.0 F Temperature Source Oral Pulse Rate [Left Brachial] 74 Respiratory Rate 17 Blood Pressure [Left Arm] 141/79 H Blood Pressure Mean [Left Arm] 99 Blood Pressure Source [Left Arm] Automatic Cuff Blood Pressure Position [Left Arm] Sitting 02 Sat by Pulse Oximetry 99 Oxygen Delivery Method Room Air Medical Decision Narrative: Medications discussed with pharmacy
[2024-09-10] MEDS: LIDOCAINE 1% 5ML PF VIAL IM (17:05)
[2024-09-10] MEDS: METHYLPREDNISOLONE SOD SUCC 125MG VIAL 125 MG IM (17:05)
[2024-09-10] MEDS: cefTRIAXone 1GM VIAL 1 GM IM (17:05)
[2024-09-10 17:30] VITALS: BP 141/79; PULSE 74; RESP 17; TEMP 37.2; O2SAT 99
== END 2024-09-10 17:34 | disposition home or self-care (01) ==
PROVIDERS: Emergency Provider Nurse Practitioner
DX: J32.9 Chronic sinusitis, unspecified (principal); R09.81 Nasal congestion; R51.9 Headache, unspecified
CPT/HCPCS: 99212; G0381; J0696; J2919

== ENCOUNTER 2024-10-13 13:59 | Emergency (ER) | payer BC, SELFPAY ==
[2024-10-13 14:45] VITALS: BP 152/72; PULSE 92; RESP 24; TEMP 36.9; O2SAT 99; BMI 20.6
--- NOTE | 2024-10-13 15:28 | ED_ITS ---
Discharge Plan Disposition Patient Disposition: Home, Self-Care Condition: Good Prescriptions Prescriptions: New benzonatate 100 mg capsule 100 mg PO TID PRN (Reason: cough) Qty: 30 0RF guaifenesin [Mucinex] 1,200 mg tablet extended release 12hr 1,200 mg PO Q12H PRN (Reason: congestion) Qty: 20 0RF azithromycin [Zithromax Z-Neal] 250 mg tablet See Rx Instructions .ROUTE .COMPLEX 5 Days Qty: 6 0RF Rx Instructions: For 250 mg dose pack: take 500 mg today (day 1), then 250 mg for 4 days (days 2-5) methylprednisolone [Medrol (Neal)] 4 mg tablets,dose pack See Rx Instructions .Route .COMPLEX 6 Days Qty: 21 0RF Rx Instructions: taper pack; Referrals Follow up/Referrals: Provider,Referral, MD [Primary Care Provider] - See instructions Activity Restrictions/Add. Instructions Additional Instructions/Restrictions: * Start antibiotic today. Be sure to complete entire prescription even if feeling better * Monitor temp. Tylenol every 4 hours as needed and / or ibuprofen every 6 hours as needed ( As long as your primary care physician has told you that it ok to take both. For fever/aches/pains ER if no less than 101 despite Tylenol or Motrin * Humidifier/vaporizer or hot steamy shower * Mucinex during the day for your cough and cough suppressant only at night. Be sure to drink lots of water. *Tessalon Perles will not cause drowsiness but use at bedtime to help stop cough so that you may get some rest. *Start steroid tomorrow. Helps with inflammation therefore, cough and wheezing. Follow directions on the package. Reviewed side effects. Patient reports taking them before. Follow up IMMEDIATELY for new or worsening of symptoms OR no noticeable improvement over the next 48-72 hours. 911 immediately for any life threatening symptoms such as chest pain or difficulty breathing Clinical Impressions Clinical Impression: Bronchitis Sinusitis Qualifiers: Sinusitis location: unspecified location Chronicity: unspecified Qualified Code(s): J32.9 - Chronic sinusitis, unspecified Instructions Patient Instructions: Acute Bronchitis, DI for Sinusitis Print Language Print Language: Burmese Discharge ED Provider: Rhonda Florentino [facility] HPI General Stated complaint: cough, congestion Mode of Arrival: Ambulatory Source of Information: Patient Time Seen by Provider: 10/13/24 15:48 Description of Symptoms (Recalled from Triage Doc. by RN): COUGH, CHEST CONGESTION X 8 DAYS HEENT Symptoms (Recalled from RN notes): Yes Resp Symptoms (Recalled from RN notes): Yes Skin Symptoms (Recalled from RN notes): No MS Symptoms (Recalled from RN notes): No Functional Status (Recalled from RN notes): WNL History of Present Illness Provider Complaint: Patient states that she has been having cough, chest congestion and drainage for over a week States that she has been taking OTC medication but nothing has helped so today she came in to get checked worried it may be bronchititis Related Data Previous Rx's ?Medication ?Instructions ?Recorded azithromycin 250 mg tablet See Rx Instructions PO .COMPLEX 5 10/13/24 (Zithromax Z-Neal) days #6 tabs benzonatate 100 mg capsule 100 mg PO TID PRN cough #30 caps 10/13/24 guaifenesin 1,200 mg tablet, 1,200 mg PO Q12H PRN congestion 10/13/24 extended release 12 hr (Mucinex) #20 tabs methylprednisolone 4 mg tablets in See Rx Instructions .Route 10/13/24 a dose pack (Medrol (Neal)) .COMPLEX 6 days #21 tabs Allergies Allergy/AdvReac Type Severity Reaction Status Date / Time No Known Allergies Allergy Verified 01/13/23 16:35 Worker's Comp Is this a Worker's Comp case?: No [facility] Disclaimer: The information contained in this section may have been updated after the patient was seen, as this information can be updated by other users. Medical History (Updated 10/13/24 @ 15:58 by Hannah Anand APRN) Anxiety Migraine Social History Smoking Status: Unknown if ever smoked alcohol intake: never current occupational status: employed Travel in the last 8 weeks: None Have you lived/traveled outside [place] in past 30 days?: No Contact w/someone who lives/traveled outside US past 30 days?: No Exposure to someone with infectious disease in past 14 days?: No Do you have a fever (greater than 100.4 F or 38 C)?: No Have you tested positive for COVID-19: No Exposed to someone with COVID-19 in past 14 days?: No Do you have a sore throat?: No Do you have a cough?: No Do you have any weakness?: No Do you have any diarrhea?: No Are you experiencing any unusual bleeding?: No Do you have any muscle aches/pain?: No Do you have any abdominal pain?: No Are you experiencing loss of taste or smell?: No ROS Obtained: Yes All systems reviewed & no additional complaints except as documented and Yes Systems reviewed as appropriate & no additional complaints except as documented Constitutional Constitutional: Reports system reviewed and no additional complaints, except as documented, Reports as per HPI, Denies fever(s) and Reports headache(s) ENT Ears, Nose, Mouth, and Throat: Reports system reviewed and no additional complaints, except as documented, Reports as per HPI, Reports headache(s), Reports nasal congestion and Reports sinus pressure Cardiovascular Cardiovascular: Reports system reviewed and no additional complaints, except as documented and Reports as per HPI Respiratory Respiratory: Reports system reviewed and no additional complaints, except as documented, Reports as per HPI, Denies shortness of breath, Reports chest congestion and Reports cough Gastrointestinal Gastrointestingal: Reports system reviewed and no additional complaints, except as documented and as per HPI Neurologic Neurologic: Reports headache(s) Physical Exam General General appearance: alert and in no apparent distress ENT ENT exam: Present mucous membranes moist Expanded ENT Exam Nose exam: Present sinus tenderness Throat exam: Present other (Pharyngeal erythema noted with PND) Respiratory Respiratory exam: Present normal lung sounds bilaterally; Absent respiratory distress or wheezes Cardiovascular Cardiovascular exam: Present regular rate, normal rhythm and normal heart sounds Neurological Exam Neurological exam: Present alert, oriented X3 and normal gait Medical Decision Making Medical Records Screening: Per USPSTF and CDC recommendations, given the prevalence of disease in our region, it is our hospital?s policy to screen for HIV and viral Hepatitis for all patients aged 18 and over and those with ongoing risk factors. Brooks Inquiry Pt receiving controlled substance: No Brooks was queried for this patient: No Vital Signs: 10/13/24 14:45 Temperature 98.4 F Temperature Source Oral Pulse Rate [Left Radial] 92 H Respiratory Rate 24 Blood Pressure [Left Arm] 152/72 H Blood Pressure Mean [Left Arm] 98 02 Sat by Pulse Oximetry 99 Lab Data Lab results reviewed: Yes I reviewed the patient's lab results.
[2024-10-13] MEDS: METHYLPREDNISOLONE SOD SUCC 125MG VIAL 125 MG IM (16:03)
[2024-10-13] MEDS: LIDOCAINE 1% 5ML PF VIAL IM (16:03)
[2024-10-13] MEDS: cefTRIAXone 1GM VIAL 1 GM IM (16:03)
[2024-10-13 16:05] VITALS: BP 152/72; PULSE 92; RESP 24; TEMP 36.9; O2SAT 99
== END 2024-10-13 16:07 | disposition home or self-care (01) ==
PROVIDERS: Emergency Provider Nurse Practitioner Family
DX: J32.9 Chronic sinusitis, unspecified (principal); J20.9 Acute bronchitis, unspecified
CPT/HCPCS: 96372; 99213; G0381; J0696; J2919